=== PATIENT | male | born 1965 | race African-American/Black ===

== ENCOUNTER 2019-01-28 12:57 | Emergency (ER) | payer OTHER | END 2019-01-28 17:31 | LOC: EDBD 12:57 → ER 12:57 | DX: I46.9 Cardiac arrest, cause unspecified (principal); I12.9 Hypertensive chronic kidney disease with stage 1 through stage 4 chronic kidney disease, or unspecified chronic kidney disease; E11.22 Type 2 diabetes mellitus with diabetic chronic kidney disease; N18.9 Chronic kidney disease, unspecified ==